=== PATIENT | female | born 1945 | race Hispanic/Latino ===

== ENCOUNTER 2020-07-15 11:26 | Emergency (ER) | payer MEDICARE ==
[~2020-07-15] VITALS: Ht 152.4 cm; Wt 104.3 kg
--- NOTE | 2020-07-15 11:53 | Emergency Department Note ---
History of Present Illnes History of Present Illness Chief Complaint: General Medicine Complaints History of Present Illness This is a 75 year old female, with a history of hypertension, hypothyroidism, fibromyalgia, asthma, arthritis, and GERD, who presents with multiple complaints. Patient states that she developed dizziness yesterday afternoon, and describes the room is spinning. She states she felt better this morning but then the symptoms recurred. The dizziness is worse with movement. She denies any headache, neck pain, or visual changes. She has had some associated nausea, but no vomiting. She is also had an intermittent, dry cough, and was seen by her doctor last week for an asthma exacerbation and treated with Zithromax and a steroid shot. During the interview, patient developed chest pain, which she describes as a tightness in the center of her chest, without radiation. She states she's been having this pain for several weeks with some mild shortness of breath. She has felt like it was related to her asthma. She denies any family history of heart disease or personal history of heart disease. She also complains that her legs and feet been cramping since yesterday. She is not on any diuretics. Historian: Patient Arrival Mode: Car Strategic Marketing Specialist Required: No Onset (how long ago): day(s) (2) Location: diffuse Quality: aching, cramping, dizzy Radiation: Reports non-radiation Severity: severe Onset quality: sudden Duration (how long): day(s) (2) Timing of current episode: constant Progression: waxing and waning Chronicity: new Context: Reports recent illness (recently treated for an asthma exacerbation, with a Z-pack. ) Relieving factors: none Exacerbating factors: none Associated symptoms: Reports chest pain, Reports cough, Reports malaise, Reports nausea/vomiting (without vomiting), Reports rash, Reports shortness of breath (mild, intermittent); Denies diaphoresis, Denies fever/chills, Denies headaches Treatments prior to arrival: none (she took none of her medications, this morning) Past Medical/Family History Physician Review I have reviewed the patient's past medical and family history. Any updates have been documented here. Past Medical History Recent Fever: No Clinical Suspicion of Infectio: No New/Unexplained Change in Ment: No Past Medical History: Hypertension, Asthma, Hypothyroidism, GERD Other Medical History: FIBROMYALGIA ARTHRITIS Past Surgical History: Cholecysctectomy, Hysterectomy, Knee Replacement Social History Smoking Cessation: Never Smoker Alcohol Use: None Any Illegal Drug Use: No TB Exposure/Symptoms: No Physically hurt or threatened: No Family History Family history of heart diseas: No Other Any Pre-Existing Lines (PICC,: No Review of Systems Review of Systems Constitutional: Denies chills, Denies fever EENTM: Denies ear pain, Denies nose congestion Cardiovascular: Reports chest pain; Denies edema, Denies palpitations, Denies syncope Respiratory: Reports cough; Denies chest congestion Gastrointestinal: Denies nausea, Denies vomiting Genitourinary: Denies dysuria, Denies frequency Musculoskeletal: Reports back pain, Reports muscle pain; Denies neck pain Integumentary: Denies change in color, Denies rash Neurological: Reports other (dizziness); Denies headache, Denies numbness, Denies tingling Psychological: Reports no symptoms Endocrine: Reports no symptoms Hematological/Lymphatic: Reports no symptoms Review of other systems: All other systems negative Physical Exam Related Data Allergies: Coded Allergies: Penicillins (Verified Allergy, Mild, RASH, 07/15/20) Vital signs reviewed: Yes Physical Exam CONSTITUTIONAL Constitutional: Present well-developed, Present well-nourished; Absent distressed, Absent ill appearing HENT HENT: Present normocephalic, Present atraumatic, Present oropharynx clear/ moist, Present nose normal; Absent nasal congestion, Absent rhinorrhea HENT L/R: Present left ext ear normal, Present right ext ear normal EYES Eyes: Reports PERRL, Reports conjunctivae normal, Reports EOM normal NECK Neck: Present ROM normal, Present supple, Present cervical adenopathy PULMONARY Pulmonary: Present effort normal, Present breath sounds normal CARDIOVASCULAR Cardiovascular: Present regular rhythm, Present heart sounds normal, Present capillary refill normal, Present normal rate GASTROINTESTINAL Abdominal: Present soft, Present nontender, Present bowel sounds normal GENITOURINARY Genitourinary: Present exam deferred SKIN Skin: Present warm, Present dry; Absent rash MUSCULOSKELETAL Musculoskeletal: Present ROM normal; Absent edema NEUROLOGICAL Neurological: Present alert, Present oriented x 3, Present no gross motor or sensory deficits PSYCHOLOGICAL Psychological: Present mood/affect normal, Present judgement normal Results Laboratory Laboratory CMP - nl; Cardiacs - normal; D-dimer - not elevated; CBC - nl, except for WBC = 11.1, H/H = 15.7/48.8; UA - nl, except for trace leuk; Lab results reviewed: Yes Imaging Imaging results reviewed: Yes Impressions [place] [address] Patient Name: WILDA GILBERT MR #: [id number] : 1945 Age/Sex: 75/F Req #: [id number] Adm Physician: Ordered by: KARENA GARCIA MD Report #: [id number] [facility] Room/Bed: Procedure: [id number] HOPD/CXR 2 VIEW - HOPD Exam Date: 07/15/20 Exam Time: 1243 REPORT STATUS: Signed EXAMINATION: CXR 2 VIEW - HOPD INDICATION: Cough. Shortness of breath. Nausea. ^cough, sob COMPARISON: None FINDINGS: TUBES and LINES: None. LUNGS: Perihilar peribronchial hazy opacity could be due to bronchitis. No focal lung consolidation. PLEURA: No pleural effusion or pneumothorax. HEART AND MEDIASTINUM: Tortuous thoracic aorta with scattered calcification. The cardiomediastinal silhouette is otherwise unremarkable. BONES AND SOFT TISSUES: No acute osseous lesion. Soft tissues are unremarkable. UPPER ABDOMEN: No free air under the diaphragm. IMPRESSION: Perihilar peribronchial hazy opacity could be due to bronchitis. No focal lung consolidation. Signed by: Dr. Michael Cali M.D. on 07/15/2020 12:44 PM Dictated By: MICHAEL CALI MD, MD 1248 Transcribed By: MICHELLE on 07/15/20 1244 COPY TO: KARENA GARCIA MD~ [address], [place] [address] Patient Name: WILDA GILBERT MR #: [id number] : 1945 Age/Sex: 75/F [facility] #: [id number] Req #: [id number] [facility] Physician: Ordered by: KARENA GARCIA MD Report #: [id number] [facility] Room/Bed: Procedure: [id number] HOPD/CT BRAIN WO-HOPD Exam Date: 07/15/20 Exam Time: 1250 REPORT STATUS: Signed Examination: CT head without contrast Clinical Indication: Headache. Dizziness. Nausea. Technique: Transaxial noncontrast images from the skull base through the vertex were obtained. Sagittal and coronal reformatted images were done. Dose modulation, iterative reconstruction, and/or weight based adjustment of the mA/kV was utilized to reduce the radiation dose to as low as reasonably achievable. Comparison: None. Findings: Scalp: No abnormalities. Bones: Intact. No fractures. No blastic or lytic lesions. Brain sulci: Appropriate for patient's age. Ventricles: Normal in size and configuration. No hydrocephalus. . Extra-axial space: No abnormalities. Parenchyma: There are patchy areas of low-attenuation within subcortical and periventricular white matter, nonspecific, but could represent microvascular ischemic disease. No masses, hemorrhage, or acute or chronic cortical based vascular insults. Suprasellar region: No abnormalities. Craniocervical junction: The foramen magnum is patent. No Chiari one malformation. Incidental findings: Atherosclerotic calcification of the cavernous and supraclinoid internal carotid arteries. Impression: 1. No acute intracranial finding. 2. Chronic microvascular ischemic change. Signed by: Dr. Joyce Tee M.D. on 07/15/2020 1:57 PM Dictated By: JOYCE ZAIDI MD 56 Transcribed By: MICHELLE on 07/15/201356 COPY TO: KARENA GARCIA MD~ Procedures 12 Lead ECG Interpretation ECG Interpretation : ECG: ECG 1 Strategic Marketing Specialist: Interpreted by ED physician Date: Jul 15, 2020 Time: 12:23 Prior ECG tracings: not available for review Rhythm: sinus rhythm Rate: normal BPM: 90 QRS axis: normal ST segments normal: No (non-specific ST changes;) ST segment flattening: V4, V5, V6 T waves normal: Yes Clinical Impression: abnormal ECG Assessment & Plan Medical Decision Making MDM - Take medications as prescribed. - Checkout out a YouTube video on "Exercises for Vertigo." - Increase her water intake, to at least 8, 16 ounce bottles of water per day. - For your leg cramps, you may take over the counter Magnesium 200 mg2 tablets once daily. - Follow-up with your Primary Care Physician, if your symptoms worsen or persist. If the dizzines is not improving or worsening, you may need an MRI of the brain to better evaluate the cerebellum, which is not performed in the ER. Pt and daughter voiced understanding of the plan. Assessment & Plan Final Impression: (1) Vertigo (2) Bronchitis (3) Chest pain (4) Hypertension (5) Leg cramps (6) Asthma Depart Disposition: HOME, SELF-[facility] Meds Active Scripts Meclizine Hcl (MECLIZINE HCL) 12.5 Mg Tablet, 25 MG PO Q6H PRN for dizziness, #30 TAB 0 Refills Prov:KARENA GARCIA MD 07/15/20 Doxycycline Hyclate (DOXYCYCLINE HYCLATE) 100 Mg Capsule, 100 MG PO BID PRN for bronchitis for 10 Days, #20 CAP 0 Refills Take ALL medication, for infection. Prov:KARENA GARCIA MD 07/15/20 KARENA GARCIA MD Jul 15, 2020 11:53
[2020-07-15] MEDS ORDERED: ONDANSETRON HCL INJ 2MG/ML 2ML 2 MG/ML VIAL IV STA (12:19)
[2020-07-15] MEDS ORDERED: MECLIZINE HCL 12.5 MG TAB PO ONE (12:30)
[2020-07-15] MEDS ORDERED: MECLIZINE HCL 12.5 MG TAB ONE (12:37)
[2020-07-15] MEDS ORDERED: ONDANSETRON HCL INJ 2MG/ML 2ML 2 MG/ML VIAL ONE (12:37)
--- NOTE | 2020-07-15 12:47 | Diagnostic Imaging Report ---
EXAMINATION: CXR 2 VIEW - HOPD INDICATION: Cough. Shortness of breath. Nausea. ^cough, sob COMPARISON: None FINDINGS: TUBES and LINES: None. LUNGS: Perihilar peribronchial hazy opacity could be due to bronchitis. No focal lung consolidation. PLEURA: No pleural effusion or pneumothorax. HEART AND MEDIASTINUM: Tortuous thoracic aorta with scattered calcification. The cardiomediastinal silhouette is otherwise unremarkable. BONES AND SOFT TISSUES: No acute osseous lesion. Soft tissues are unremarkable. UPPER ABDOMEN: No free air under the diaphragm. IMPRESSION: Perihilar peribronchial hazy opacity could be due to bronchitis. No focal lung consolidation. Signed by: Dr. Michael Cali M.D. on 07/15/2020 12:44 PM
--- OUTSIDE RECORDS SUMMARY | 2020-07-15 12:58 | XMS REPORT | Continuity of Care Document ---
Author Author [facility] Organization [facility] Address [address] [place] [address] Phone Unavailable Care Team Providers Care Manager Aviation Name Role Phone Aaron GARCIA Unavailable Problems This patient has no known problems. Allergies, Adverse Reactions, Alerts This patient has no known allergies or adverse reactions. Medications This patient has no known medications. Procedures This patient has no known procedures. Results Test Description Test Time Test Comments Results Result Comments Source CXR 2 VIEW - HOPD 2020-07-15 12:42:00 [facility]ENTER[facility] WILDA GILBERT : 1945 Sex: F [facility] [address] [place] [address] Patient Name: WILDA GILBERT MR #: [id number] : 1945 Age/Sex: 75/F Req #: [id number] [facility] Physician: Ordered by: KARENA GARCIA MD Report #: [id number] Location: [facility] Room/Bed: Procedure: [id number] HOPD/CXR 2 VIEW - HOPD Exam Date: 07/15/20 Exam Time: 1243 REPORT STATUS: Signed EXAMINATION: CXR 2 VIEW - HOPD INDICATION: Cough. Shortness of breath. Nausea. cough, sob COMPARISON: None FINDINGS: TUBES and LINES: None. LUNGS: Perihilar peribronchial hazy opacity could be due to bronchitis. No focal lung consolidation. PLEURA: No pleural effusion or pneumothorax. HEART AND MEDIASTINUM: Tortuous thoracic aorta with scattered calcification. The cardiomediastinal silhouette is otherwise unremarkable. BONES AND SOFT TISSUES: No acute osseous lesion. Soft tissues are unremarkable. UPPER ABDOMEN: No free air under the diaphragm. IMPRESSION: Perihilar peribronchial hazy opacity could be due to bronchitis. No focal lung consolidation. Signed by: Dr. Michael Cali M.D. on 07/15/2020 12:44 PM Dictated By: MICHAEL CALI MD, MD 1244 Transcribed By: MICHELLE on 07/15/20 1244 COPY TO: KARENA GARCIA MD
--- NOTE | 2020-07-15 14:00 | Diagnostic Imaging Report ---
Examination: CT head without contrast Clinical Indication: Headache. Dizziness. Nausea. Technique: Transaxial noncontrast images from the skull base through the vertex were obtained. Sagittal and coronal reformatted images were done. Dose modulation, iterative reconstruction, and/or weight based adjustment of the mA/kV was utilized to reduce the radiation dose to as low as reasonably achievable. Comparison: None. Findings: Scalp: No abnormalities. Bones: Intact. No fractures. No blastic or lytic lesions. Brain sulci: Appropriate for patient's age. Ventricles: Normal in size and configuration. No hydrocephalus. . Extra-axial space: No abnormalities. Parenchyma: There are patchy areas of low-attenuation within subcortical and periventricular white matter, nonspecific, but could represent microvascular ischemic disease. No masses, hemorrhage, or acute or chronic cortical based vascular insults. Suprasellar region: No abnormalities. Craniocervical junction: The foramen magnum is patent. No Chiari one malformation. Incidental findings: Atherosclerotic calcification of the cavernous and supraclinoid internal carotid arteries. Impression: 1. No acute intracranial finding. 2. Chronic microvascular ischemic change. Signed by: Dr. Joyce Tee M.D. on 07/15/2020 1:57 PM
[2020-07-15] MEDS ORDERED: DOXYCYCLINE HY100 MG PO (14:23)
[2020-07-15] MEDS ORDERED: MECLIZINE HCL12.5 MG PO (14:25)
== END 2020-07-15 14:39 | disposition home or self-care (01) ==
LOC: FSED 12:17
DX: R42 Dizziness and giddiness (principal); R07.9 Chest pain, unspecified; J40 Bronchitis, not specified as acute or chronic; R25.2 Cramp and spasm; I10 Essential (primary) hypertension; R94.31 Abnormal electrocardiogram [ECG] [EKG]; E03.9 Hypothyroidism, unspecified; K21.9 Gastro-esophageal reflux disease without esophagitis; M79.7 Fibromyalgia
CPT/HCPCS: 70450; 71046; 80053; 81003; 82553; 84484; 85025; 85379; 93005; 99284; J2405; J8597